=== PATIENT | female | born 1940 | race Caucasian/White ===

== ENCOUNTER → 2017-05-25 | Outpatient (REF) | payer MEDICARE, BC, OTHER ==
[2017-05-25 18:19] LABS: ALBUMIN 3.7 GM/DL (3.2-5.2); ALBUMIN/GLOBULIN RATIO 1.09 (1.00-1.93); ALKALINE PHOSPHATASE 110 U/L (45-117); ALT/SGPT 22 U/L (12-78); ANION GAP 10 MEQ/L (8-16); AST/SGOT 11 U/L (15-37); BILIRUBIN,TOTAL 0.4 MG/DL (0.2-1.0); BLOOD UREA NITROGEN 19 MG/DL (7-18); CALCIUM LEVEL 9.3 MG/DL (8.8-10.2); CARBON DIOXIDE LEVEL 26 MEQ/L (21-32); CHLORIDE LEVEL 105 MEQ/L (98-107); GLOMERULAR FILTRATION RATE > 60.0 (>39); GLUCOSE, FASTING 245 MG/DL (83-110); POTASSIUM SERUM 4.2 MEQ/L (3.5-5.1); SODIUM LEVEL 141 MEQ/L (136-145); TOTAL PROTEIN 7.1 GM/DL (6.4-8.2)
[2017-05-25 19:56] LABS: VITAMIN B12 LEVEL 335 PG/ML (247-911)
== END ==
LOC: M SFHCPLAZ 14:36
PROVIDERS: ATTEND Physician Assistant
DX: R20.2 Paresthesia of skin (principal); R26.81 Unsteadiness on feet; R29.6 Repeated falls; E11.9 Type 2 diabetes mellitus without complications; F32.9 Major depressive disorder, single episode, unspecified; I10 Essential (primary) hypertension; E03.9 Hypothyroidism, unspecified; Z79.84 Long term (current) use of oral hypoglycemic drugs; Z79.82 Long term (current) use of aspirin
CPT/HCPCS: 36415; 80053; 82306; 82607; 84443; G0463

== ENCOUNTER → 2017-06-29 | Outpatient (CLI) | payer MEDICARE, BC, OTHER ==
--- NOTE | 2017-06-29 17:32 | REP ---
MRI lumbar spine without contrast: History: Left-sided foot drop. Technique: Sagittal and axial T1 and T2-weighted scans are acquired in the usual fashion with and without fat saturation. Sequences include spin echo, turbo spin-echo, and STIR imaging sequences. MRI findings: Lumbar vertebral body heights are preserved. There is some straightening. No extra vertebral abnormality is noted. Conus medullaris is normal in position and appearance at T12-L1. There is diffuse degenerative narrowing and desiccation of the discs at each level from L2-3 through L5-S1 consistent with degenerative disc disease. There are multiple Schmorl's nodes on either side of the L4-5 disc. At L2-3, there is a broad-based disc protrusion along the left posterolateral and left foraminal disc margin producing neural foraminal encroachment and indenting the thecal sac. This combined with developmentally short pedicles, mild facet hypertrophy, and ligamentum flavum hypertrophy, produces moderate central canal stenosis at L2-3 as well. The right neural foramen is adequate. At L3-4, there is moderate central canal stenosis as well. This is due to diffuse disc bulging, short pedicles, ligamentum flavum and facet hypertrophy. There is also a 3 mm L3-4 degenerative spondylolisthesis. At L4-5, there is moderate central canal stenosis due to right posterior broad-based disc protrusion, short pedicles, ligamentum flavum and facet hypertrophy. There is mild bilateral neural foraminal encroachment at L4-5. At L5-S1, there is diffuse disc bulging. Bilateral neural foraminal encroachment is seen left greater than right due to disc spurring and bulging and facet hypertrophy. No central canal stenosis is noted at L5-S1. Impression: Fairly advanced degenerative spondylosis changes with multilevel central canal stenosis at L2-3 through L4-5. Multilevel neural foraminal encroachment is also noted. There is a degenerative 3 mm L3-4 spondylolisthesis. Signed by Polo Riggs MD 06/30/2017 07:57 A
== END ==
LOC: M RAD 13:21
PROVIDERS: ATTEND Family Medicine
DX: M21.372 Foot drop, left foot (principal); M51.26 Other intervertebral disc displacement, lumbar region; M51.27 Other intervertebral disc displacement, lumbosacral region; M47.816 Spondylosis without myelopathy or radiculopathy, lumbar region; M47.817 Spondylosis without myelopathy or radiculopathy, lumbosacral region

== ENCOUNTER → 2017-07-14 | Outpatient (CLI) | payer MEDICARE, BC, OTHER ==
--- NOTE | 2017-07-14 11:49 | REP ---
Soft-tissue ultrasound left lower extremity popliteal space. History: Left-sided foot drop. Question left Wiley's cyst. Findings: The posterior popliteal soft tissue area was scanned sonographically. No Wiley's cyst is appreciated. No mass or aneurysm is seen. No vascular abnormality is noted. Impression: Negative posterior popliteal soft tissue ultrasound. Signed by Polo Riggs MD 07/14/2017 01:43 P
== END ==
LOC: M RAD 10:36
PROVIDERS: ATTEND Psychiatry & Neurology Neurology
DX: M21.372 Foot drop, left foot (principal); M71.22 Synovial cyst of popliteal space [Baker], left knee

== ENCOUNTER → 2017-08-03 | Outpatient (REF) | payer MEDICARE, BC, OTHER ==
[2017-08-03 16:25] LABS: ANION GAP 10 MEQ/L (8-16); BLOOD UREA NITROGEN 13 MG/DL (7-18); CALCIUM LEVEL 8.7 MG/DL (8.8-10.2); CARBON DIOXIDE LEVEL 27 MEQ/L (21-32); CHLORIDE LEVEL 107 MEQ/L (98-107); CHOLESTEROL LEVEL 143 MG/DL (<200); CREATININE FOR GFR 0.58 MG/DL (0.55-1.02); GLOMERULAR FILTRATION RATE > 60.0 (>39); GLUCOSE, FASTING 208 MG/DL (83-110); POTASSIUM SERUM 4.2 MEQ/L (3.5-5.1); SODIUM LEVEL 144 MEQ/L (136-145); TRIGLYCERIDES LEVEL 140 MG/DL (<150)
== END ==
LOC: M SFHCPLAZ 14:04
PROVIDERS: ATTEND Family Medicine
DX: E11.65 Type 2 diabetes mellitus with hyperglycemia (principal); E78.5 Hyperlipidemia, unspecified
CPT/HCPCS: 36415; 80048; 80061; 83036; G0463

== ENCOUNTER → 2017-12-01 | Outpatient (CLI) | payer MEDICARE, BC, OTHER | LOC: M CLY 11:36 | DX: J22 Unspecified acute lower respiratory infection (principal) | CPT/HCPCS: 71046 ==

== ENCOUNTER → 2019-06-09 | Outpatient (REF) | payer MEDICARE, OTHER ==
[~2019-06-09] MED LIST: AMLO10TA PO; ASPI81CH44 PO; ATOR40TA75 PO; CVS5000S2 PO; FLUO10CA8 PO; GLIP2.5T6 PO; JANU50TA8 PO; LEVO88TA3 PO; LISI-538 PO; MECL1CHW PO; METO1TAB87 PO; NEUR100C PO; OMEP-218 PO; PLAV1TAB2 PO; VESI5TAB2 PO
[2019-06-09 14:00] LABS: BASO # 0.1 10^3/uL (0.0-0.2); BASO % 0.7 % (0.0-1.0); EOS # 0.3 10^3/uL (0.0-0.50); EOS % 2.7 % (0.0-3.0); HEMATOCRIT 37.7 % (36.0-47.0); HEMOGLOBIN 11.9 g/dl (12.0-15.5); LYMPH # 2.6 10^3/uL (1.5-4.5); LYMPH % 27.1 % (24.0-44.0); MEAN CORPUSCULAR HEMOGLOBIN 27.9 pg (27.0-33.0); MEAN CORPUSCULAR HGB CONC 31.6 g/dl (32.0-36.5); MEAN CORPUSCULAR VOLUME 88.5 fl (80.0-96.0); MONO # 0.9 10^3/uL (0.0-0.8); MONO % 9.1 % (0.0-5.0); NEUTROPHILS # 5.8 10^3/uL (1.8-7.7); PLATELET COUNT, AUTOMATED 369 10^3/uL (150-450); RED BLOOD COUNT 4.26 10^6/uL (4.00-5.40); WHITE BLOOD COUNT 9.7 10^3/uL (4.0-10.0)
[2019-06-09 14:14] LABS: ALBUMIN 3.3 GM/DL (3.2-5.2); ALT/SGPT 15 U/L (12-78); BILIRUBIN,TOTAL 0.3 MG/DL (0.2-1.0); BLOOD UREA NITROGEN 10 MG/DL (7-18); CALCIUM LEVEL 8.7 MG/DL (8.8-10.2); CARBON DIOXIDE LEVEL 26 MEQ/L (21-32); CHLORIDE LEVEL 109 MEQ/L (98-107); CK-MB VALUE MASS 1.9 NG/ML (<3.6); CPK CREATINE PHOSPHOKINASE 67 U/L (26-192); CREATININE FOR GFR 0.59 MG/DL (0.55-1.30); GLOMERULAR FILTRATION RATE > 60.0 (>39); GLUCOSE, FASTING 122 MG/DL (70-100); MB/CK RELATIVE INDEX 2.84 (< OR =4); POTASSIUM SERUM 4.5 MEQ/L (3.5-5.1); SODIUM LEVEL 143 MEQ/L (136-145); TOTAL PROTEIN 6.6 GM/DL (6.4-8.2); TROPONIN I 0.11 NG/ML (< 0.10)
== END ==
LOC: M SFHCPLAZ 11:01
PROVIDERS: ATTEND Physician Assistant Medical
DX: E11.9 Type 2 diabetes mellitus without complications (principal); I21.11 ST elevation (STEMI) myocardial infarction involving right coronary artery; E78.2 Mixed hyperlipidemia
CPT/HCPCS: 36415; 80053; 82550; 82553; 84484; 85025; G0463

== ENCOUNTER 2019-07-13 11:11 | Outpatient (RCR) | payer MEDICARE, BC, OTHER ==
--- NOTE | 2019-06-22 15:19 | CARECAPL ---
Assessment Account #s: Initial Assessment General Diagnoses: STEMI Date of event: May 30, 2019 Physician: Grupo Andrews Allergies: Coded Allergies: Vicodin (Verified Allergy, vomiting, 06/22/19) Morphine (Verified Adverse Reaction, vomiting, 06/22/19) Percocet (Verified Adverse Reaction, vomiting, 06/22/19) Date Entered Program: Jun 22, 2019 Risk strat for cardiac event: Moderate Exercise Date: Jun 22, 2019 Assessment: Initial Assessment Exercise Prescription Modalities initiated: Treadmill (will add), Cardio-Strider (will add), Nustep (will add), Arm Aerometer (will add), Dumbells (will add), Recumbent Bike (will add) Frequency: 2-3 Duration (Minutes) 30-60 minutes total exercise a day. 6-10 work intervals in minutes. prn rest intervals in minutes. Functional Capacity Goal Sustained Metabolic Equivalent of a task (MET) goal of 2.5-3.5 for 15-20 minutes. Intensity: 3-Moderate Progression (METS) Increase by: .5 METS every: 2-3 sessions Angina with ex: No Target Heart Rate rest + 35-40 Resistance Training: Yes Weight (pounds): 1 Reps: 6-8 Hypertension: Yes Hypertension controlled with: Diet Resting 148/67 Meds see below Medications Scheduled Amlodipine Besylate (Norvasc), 10 MG PO DAILY, (Reported) Aspirin (Aspirin), 1 TAB PO DAILY, (Reported) Atorvastatin Calcium (Atorvastatin Calcium), 1 TAB PO DAILY, (Reported) Clopidogrel Bisulfate (Plavix), 75 MG PO DAILY, (Reported) Cyanocobalamin (Vitamin B-12) (Vitamin B12), 5 MG PO DAILY, (Reported) Fluoxetine Hcl (Fluoxetine HCl), 10 MG PO DAILY, (Reported) Gabapentin (Neurontin), 200 MG PO DAILY, (Reported) Glipizide (Glipizide ER), 2.5 MG PO DAILY, (Reported) Levothyroxine Sodium (Levothyroxine Sodium), 88 MCG PO DAILY, (Reported) Lisinopril (Lisinopril), 1 TAB PO DAILY, (Reported) Meclizine Hcl (Meclizine HCl), 25 MG PO DAILY, (Reported) Metoprolol Tartrate (Metoprolol Tartrate), 25 MG PO DAILY, (Reported) Omeprazole (Omeprazole), 1 CAP PO DAILY, (Reported) Sitagliptin Phos/Metformin HCl (Janumet 50-1,000 mg Tablet), 2 TAB PO DAILY, (Reported) Solifenacin Succinate (Vesicare), 1 TAB PO DAILY, (Reported) Target Goals Individual exercise Rx (1) BP 140/90 or 130/80 if DM or CKD (1) Aerobic active 30+min 5 days per week (1) Nutrition Date: Jun 22, 2019 Assessment: Initial Assessment Lipid- med/supplement Atorvastatin Diabetes Diabetes: Yes Fasting Blood Sugar: 117 Diabetes medication glipizide Monitor Blood Sugar at home: Yes Frequency daily Weight Management Weight (lbs): 143 Height (inches): 61 Waist Circumference (Inches): 38 BMI: 27 Weight goal: 135 Special Diet: low salt, mediteranean diet, low-fat Vitamin/Supplements: Vitamin C, Vitamin D Intervention Dietary Goals smaller portions and better choices Diet Class: Yes (will see this program) Referral to Diabetes education: No Referral to lipid clinic: No Referral to weight mangement p: No Target goal LDL-C<100 if triglycerides are >200 Non-HDL-C should be <130 (1) LDL-C<70 for high risk patients (4) HbA1c<7% (1) BMI<25 Waist cir<40in M/<35in F (1) Education Date: Jun 22, 2019 Assessment: Initial Assessment Knowledge Test Score: 7 Family Support: Yes Tobacco use: No Quit: >6 months Intervention Education class schedule given: Yes Target Goals Complete cessation of tobacco use (1). Psychosocial Date: Jun 22, 2019 Assessment: Initial Assessment Psych Test (Initial/Discharge) Tool Used: Other (depression scale) Score: 9 Intervention Physician Consult: No Physician Referral: No Stress Management Class: Yes Uses Stress Management Skills: Yes Target Goal Assess presence or absence of depression using a valid screening tool (1). Maximize coping skills (2). Positive support system (2). Provider Assessment Session Number: 1 Provider Assessment: Proceed with Didi Neal RN Jun 22, 2019 15:18
--- NOTE | 2019-07-14 15:58 | CARECAPL ---
Assessment Account #s: Re-Assessment I General Diagnoses: STEMI Date of event: May 30, 2019 Physician: Grupo Andrews Allergies: Coded Allergies: acetaminophen (Verified Allergy, Unknown, vomiting, 06/22/19) hydrocodone (Verified Allergy, Unknown, vomiting, 06/22/19) morphine (Verified Adverse Reaction, Unknown, vomiting, 06/22/19) oxycodone (Verified Adverse Reaction, Unknown, vomiting, 06/22/19) Date Entered Program: Jun 22, 2019 Risk strat for cardiac event: Moderate Exercise Date: Jul 14, 2019 Assessment: Re-Assessment I Exercise Prescription Plan TO EDUCATE AND BUILD ENDURANCE THROUGH MONITORED EXERCISE Modalities initiated: Nustep (LEVEL 2/METS=1.9/RPE=3), Arm Aerometer (LEVEL 2.5/METS=1.8/RPE=2.5), Dumbells (3#/RPE=3) Frequency: 1-2 Duration (Minutes) 30 - 60 minutes total exercise a day. 15 - 20 work intervals in minutes. PRN rest intervals in minutes. Functional Capacity Goal Sustained Metabolic Equivalent of a task (MET) goal of 2.5-3.5 for 15-20 minutes. Intensity: 3-Moderate Progression (METS) Increase by: 0.5 METS every: 3-5 sessions TOLERATED Angina with ex: No Target Heart Rate REST +35-40 Resistance Training: Yes Weight (pounds): 3 Reps: 6-8 Hypertension: Yes Hypertension controlled with: Diet Resting 146/88 Peak Exercise BP 130/70 Medications Scheduled Amlodipine Besylate (Norvasc), 10 MG PO DAILY, (Reported) Aspirin (Aspirin), 1 TAB PO DAILY, (Reported) Atorvastatin Calcium (Atorvastatin Calcium), 1 TAB PO DAILY, (Reported) Clopidogrel Bisulfate (Plavix), 75 MG PO DAILY, (Reported) Cyanocobalamin (Vitamin B-12) (Vitamin B12), 5 MG PO DAILY, (Reported) Fluoxetine Hcl (Fluoxetine HCl), 10 MG PO DAILY, (Reported) Gabapentin (Neurontin), 200 MG PO DAILY, (Reported) Glipizide (Glipizide ER), 2.5 MG PO DAILY, (Reported) Levothyroxine Sodium (Levothyroxine Sodium), 88 MCG PO DAILY, (Reported) Lisinopril (Lisinopril), 1 TAB PO DAILY, (Reported) Meclizine Hcl (Meclizine HCl), 25 MG PO DAILY, (Reported) Metoprolol Tartrate (Metoprolol Tartrate), 25 MG PO DAILY, (Reported) Omeprazole (Omeprazole), 1 CAP PO DAILY, (Reported) Sitagliptin Phos/Metformin HCl (Janumet 50-1,000 mg Tablet), 2 TAB PO DAILY, (Reported) Solifenacin Succinate (Vesicare), 1 TAB PO DAILY, (Reported) Current BP 122/70 Med Change: No Intervention Resistance Training: Yes Education: Self pulse (LOCATION/TIME), Ex safety (KEEP HYDRATED), S/S to report (REPORT CHEST PAIN/SOB), Low NA diet (FOLLOWING SALT RESTRICTION, NO ADDING SALT TO FOOD), BP medication (REVIEWED IMPORTANCE OF COMPLIANCE WITH MEDICATIONS, DISCUSSED LISINOPRIL,METOPROLOL,NORVASC), RPE Scale (DEMONSTRATES ABILITY TO RATE DIFFICULTY), Equipment orientation (REVIEWED EQUIPMENT USED), warm up/cool down (DEMONSTRATES ABILITY TO WARM UP/COOL DOWN TO PREVENT INJURY), Und erstand BP (REVIEWED STANDARD B/P), Physical Active (REVIEWED IMPORTANCE OF CONTINUED EXERCISE FOLLOWING CARDIAC REHAB PROGRAM) Education Goals Met: No (POOR PROGRESS TOWARD GOALS) Target Goals Individual exercise Rx (1) BP 140/90 or 130/80 if DM or CKD (1) Aerobic active 30+min 5 days per week (1) Nutrition Date: Jul 14, 2019 Assessment: Re-Assessment I Lipid- med/supplement ATORVASTATIN Med Change: No Diabetes Diabetes: No Monitor Blood Sugar at home: No Medication Change: No Blood sugar in range: Yes Weight Management Weight (lbs): 143.4 Special Diet: low salt, mediteranean diet, low-fat Alcohol: none Current Weight (pounds): 143.4 Intervention Time Analysis Clerk Consult: No Nurse/patient discussion: Yes Dietary Goals HEART HEALTHY CHOICES Diet Class: Yes (WILL SEE FLOORMAN WHILE IN PROGRAM) Referral to Diabetes education: No Referral to lipid clinic: No Referral to weight mangement p: No Education Eating Healthy (DISCUSSED MEDITERRANEAN DIET EATING MORE FISH, VEGETABLES/NEEDS REINFORCEMENT) Education Goals Met: No (POOR PROGRESS TOWARD GOALS) Target goal LDL-C<100 if triglycerides are >200 Non-HDL-C should be <130 (1) LDL-C<70 for high risk patients (4) HbA1c<7% (1) BMI<25 Waist cir<40in M/<35in F (1) Education Date: Jul 14, 2019 Assessment: Re-Assessment I Learning Barriers: ready Family Support: Yes Tobacco use: No Quit: >6 months Tobacco Use Smokeless tobacco: No Intervention Referral to smoking cessation: No Individual education and couns: No Tobacco Adjunct: No Education class schedule given: No Attended education classes: No Education: tobacco triggers (STRESS/NEEDS REINFORCEMENT), CAD (REVIEWED CAD/NEEDS REINFORCEMENT), Risk factors (DIET,SMOKING,LACK OF EXERCISE/NEEDS REINFORCEMENT), med compliance (DISCUSSED IMPORTANCE OF TAKING MEDICATION ORDERED/NEEDS REINFORCEMENT), cardiac A&P (ANATOMY OF HEART HANDOUT/NEEDS REINFORCEMENT), Angina S/S (CHEST PAIN,NAUSEA,VOMITING,SOB/NEEDS REINFORCEMENT), Sexuality (UNDERSTANDS WHEN RELEASED FROM MD) Education Goals Met: Yes (NEEDS REINFORCEMENT) Target Goals Complete cessation of tobacco use (1). Psychosocial Date: Jul 14, 2019 Assessment: Re-Assessment I Intervention Physician Consult: No Physician Referral: No Med Change: No Stress Management Class: No Uses Stress Management Skills: Yes Education Education: Coping Techniques (TAKE TIME FOR SELF, READING,LISTENING TO MUSIC/NEEDS MORE REINFORCEMENT), S/S depression (LACK OF INTEREST,LOSS OF APPETITE/NEEDS REINFORCEMENT), Relaxation Techniques (LISTENING TO MUSIC,READING/NEEDS REINFORCEMENT) Education Goals Met: Yes (PROGRESSING SLOWLY/WILL REINFORCE EDUCATION/SET GOALS) Target Goal Assess presence or absence of depression using a valid screening tool (1). Maximize coping skills (2). Positive support system (2). Patient/Program Goal Preventative Medication: Yes Aspirin, Yes Clopidogrel, Yes Beta blockade, Yes Statin/OTR lipid Lowering Fall Risk Assess: Yes (NOT A FALL RISK) Provider Assessment Session Number: 5 Provider Assessment: No changes (POOR PROGRESS TOWARD GOALS DUE TO LACK OF INTEREST) Manfred Dawn RN Jul 14, 2019 15:58
== END 2019-07-15 ==
LOC: M CR 11:11
PROVIDERS: ATTEND Internal Medicine Cardiovascular Disease
DX: I21.3 ST elevation (STEMI) myocardial infarction of unspecified site (principal)

== ENCOUNTER 2019-07-22 08:30 | Day surgery (SDC) | payer MEDICARE, BC, OTHER ==
[2019-07-22] VITALS (9 sets, daily range): BP systolic 124–171; BP diastolic 58–80
[~2019-07-22] VITALS: Ht 154.9 cm; Wt 60.7 kg
[2019-07-22] MEDS ORDERED: VITAMIN D PO (08:49)
[2019-07-22] MEDS ORDERED: VITA500T40 PO (08:49)
[2019-07-22] MEDS ORDERED: JANU50TA25 PO (08:49)
[2019-07-22] MEDS ORDERED: MECL-86 PO (08:50)
--- NOTE | 2019-07-22 08:56 | REP ---
Clinical: Acute chest pain . Comparison: 12/01/2017 . Findings: The mediastinum and cardiac silhouette are stable and within normal limits for portable technique. The lung gao are clear without acute consolidation, effusion, or pneumothorax. Skeletal structures are intact. Impression: No acute cardiopulmonary process appreciated. Electronically Signed by Mikhail Beasley MD 07/22/2019 08:47 A
[2019-07-22] MEDS ORDERED: ONDANSETRON 4MG/2ML VIAL (J2405) IV ONE (09:00)
--- NOTE | 2019-07-22 09:14 | REP ---
Clinical: Trauma . Findings: Age-related atrophy and microvascular ischemic changes are appreciated. The ventricles and sulci are symmetric. Mathur-white differentiation is maintained. There is no evidence for acute intracranial hemorrhage, mass/mass effect, pathology or infarction. No extra-axial fluid collection. Calvarium is intact. Paranasal sinuses and mastoid air cells are clear. Impression: Age related atrophy and microvascular ischemic changes. No acute intracranial hemorrhage, infarction, or mass/mass effect. Electronically Signed by Mikhail Beasley MD 07/22/2019 09:06 A
[2019-07-22] MEDS ORDERED: ceFAZolin 2 GM/D5W 50 ML IV BAG (J0690 PER 500MG) As Ordered ONE (09:15)
--- NOTE | 2019-07-22 09:18 | REP ---
Clinical: Trauma. Technique: Axial noncontrast images from the skull base to the thoracic inlet with coronal and sagittal re-formations. Findings: Anterior fusion at C4-C6 is appreciated. Alignment is maintained. There is no evidence for acute fracture / compression injury or subluxation. Advanced multilevel degenerative disc osteophyte complexes noted from the atlantoaxial level through C7-T1. Findings include osteophytosis, chondrocalcinosis, endplate sclerosis, disc space narrowing and facet arthropathy. Chronic canal stenosis at C4-5 through C6-7 is appreciated. Surrounding soft tissues are grossly unremarkable. Lung apices are clear. Impression: 1. Prior anterior fusion and diffuse advanced degenerative spondylosis. 2. Alignment is maintained and there is no evidence for acute fracture / compression injury or subluxation. Electronically Signed by Mikhail Beasley MD 07/22/2019 09:10 A
[2019-07-22] MEDS ORDERED: VITA50005 PO (09:27)
[2019-07-22] MEDS ORDERED: NITR4TASL SL (09:27)
[2019-07-22] MEDS ORDERED: VICT18IN SC (09:27)
[2019-07-22] MEDS ORDERED: PROPOFOL 200 MG/20 ML VIAL As Ordered ONE (09:41)
[2019-07-22] MEDS ORDERED: MIDAZOLAM INJ 2 MG/2 ML VIAL (J2250) As Ordered ONE (09:41)
[2019-07-22] MEDS ORDERED: fentaNYL 100 MCG/2 ML INJECTION (J3010) As Ordered ONE (09:41)
[2019-07-22] MEDS ORDERED: NITROGLYCERIN 0.4 MG SUBL TABLET SL PRN (11:15)
[2019-07-22] MEDS ORDERED: DEXTROSE 50% 50 ML SYRINGE IV PRN (11:30)
[2019-07-22] MEDS ORDERED: LR 1,000 ML IV SCH (11:30)
[2019-07-22] MEDS ORDERED: ONDANSETRON 4MG/2ML VIAL (J2405) IV PRN (11:30)
[2019-07-22] MEDS ORDERED: fentaNYL 100 MCG/2 ML INJECTION (J3010) IV PRN (11:30)
[2019-07-22] MEDS ORDERED: GLUCOSE 4 GM CHEW TABLET PO PRN (11:30)
[2019-07-22] MEDS ORDERED: GLUCAGON FOR INJ 1 MG VIAL (J1610) SC PRN (11:30)
--- NOTE | 2019-07-22 12:26 | REP ---
Clinical: Status post pacemaker . Comparison: 07/22/2019 at 08:41 a.m. . Findings: Dual lead pacemaker in satisfactory position. The mediastinum and cardiac silhouette are stable and within normal limits for portable technique. The lung gao are clear without acute consolidation, effusion, or pneumothorax. Skeletal structures are intact. Impression: Dual lead pacemaker in satisfactory position. No pneumothorax. Electronically Signed by Mikhail Beasley MD 07/22/2019 12:18 P
[2019-07-22] MEDS: ACETAMINOPHEN TAB 650MG DOSE (2X325MG) PO PRN ×2 (13:14→18:28)
[2019-07-22] MEDS: HumaLOG INSULIN (NovoLOG) PER UNIT SC SCH ×2 (13:15→18:01)
--- NOTE | 2019-07-22 13:27 | RO ---
DATE OF PROCEDURE: 07/22/2019 PROCEDURE: Implantation of permanent dual chamber pacemaker. IMPLANTING VESSEL BUILDER: Dr. Jeff Martel. ANESTHESIOLOGIST: Dr. Raygoza. PREOPERATIVE DIAGNOSIS: Recurrent syncope/complete heart block. POSTOPERATIVE DIAGNOSIS: Recurrent syncope/complete heart block. TYPE OF ANESTHESIA: Monitored local anesthesia. CLINICAL SUMMARY: This 79-year-old woman resident of [place] who is known to my cardiology service with multiple coronary artery risk factors including prior smoking, hypertension, hyperlipidemia, and diabetes mellitus has been followed for hypertensive heart disease and only recently suffered a non-Q wave myocardial infarction May 2019. At that time, she underwent multivessel PTCA/stenting and appeared to have done well. 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 She was just seen by her primary provider June 09, 2019 and had been doing reasonably well. Has had a history of chronic vertigo and intermittent falls attributed to inner ear problems. The morning she was found to have collapsed and an ambulance was called. She was found to be markedly bradycardic and en route to the hospital a trial of atropine was administered without effect. In our emergency room, she was promptly evaluated by Dr. Whelan. Her EKG showed complete heart block with telemetry showing intermittently markedly slow ventricular responses. I was summoned to see her and found on the monitor she would have pauses of 10 seconds with rate observed down to 16 beats per minute. She was in the process of undergoing chest and abdominal CT scanning with right flank pain with her fall. We chose to defer this until her cardiovascular status was more stable and she was emergently taken to the operating room for pacemaker implantation. This pleasant elderly woman of medium body build appeared markedly pale and with intermittent confusion and dizziness even in the supine position. Heart rate in the 30s, blood pressure of 138/62 supine, respiratory was 16, O2 saturation was 98% with supplemental oxygen. Trachea midline. Neck veins did not appear to be elevated. Normal-appearing chest configuration and chest expansion. Good air entry over both lung gao with no adventitious sounds. Apical impulse not palpable. Heart sounds were quite irregular. No audible murmur. Peripheral pulses appeared to be symmetrical and normal. No dependent edema. Last available blood work from May showed a hemoglobin of 11.9. Normal white blood cell count and platelet count. Chemistry confirmed electrolyte balance with BUN 10, creatinine 0.56. DESCRIPTION OF PROCEDURE: With the patient in fasting state having signed informed consent she received Ancef 2 grams IV premedication and was taken to the operating theater. Cardioverting / defibrillating / noninvasive patches were in place and connected to a bedside cardioverter defibrillator. Multiple surface electrodes were applied to facilitate continuous electrocardiographic monitoring. The left subclavian region was prepped and draped in usual fashion and skin was infiltrated with 1% Xylocaine. The left axillary vein was catheterized using the micropuncture technique and a 5-cm linear incision was made several centimeters below and parallel to the left clavicle. Dissection was carried down to the level of the pectoralis fascia. The pocket was fashioned below the level incision line. Two commercial airplane pilot other screw-in active fixation steroid eluding pacing leads were then positioned to the distal right ventricular septum and the high right atrial appendage under fluoroscopic electrocardiographic control. The first ventricular lead ([employer] model number [id number], serial number [id number]) showed initial signals and pacing values at the RV apex seemed to be satisfactory but upon screwing the lead into the right ventricular apex, we found a lead impedance of 4000 ohms. The measured R-wave was 7.5 mV. In light of this marked increase in the lead impedance from baseline (1000 ohms prior to deploying the screw), we elected to replace this lead. The second right ventricular lead ([employer] model number [id number], serial number [id number]). Measurements were focal and stimulation threshold 0.75 V / 0.4 ms/ impedance 440 ohms. R wave amplitude measured 5-6 mV. The atrial lead ([employer] model number [id number] serial number [id number]) measurements were focal stimulation threshold 1.0, V / 0.4 ms/ lead impedance 660 ohms. The P wave amplitude measured 5.0 small mV. These leads were secured in position with sleeves sutured at the insertion site and a were connected to a dual-chamber pulse generator - MRI compatible ([employer] - [employer] model number [id number] serial number [id number]) and appropriate, DDD pacing was documented. The rate responsive feature of this device will not be activated. We positioned the pulse generator pocket and secured in position with a suture through the upper right-hand corner of the epoxy header. The subcutaneous tissues were approximated using a running chromic suture and skin was closed using rafael. Dry dressing was applied. The patient was returned to recovery room in good condition. No apparent complications other than the malfunctioning ventricular pacing lead we tried using initially. Estimated blood loss less than 10 mL. Postoperative portable upright chest x-ray showed good lead position with no pneumothorax. The EKG showed sinus tachycardia at 108 bpm with consistent atrial sensing and tracking with consistent ventricular pacing. Paced QRS complexes with leftward axis and left bundle branch block configuration in keeping with RV apical stimulation. The patient will be monitored on telemetry overnight and her usual medications will be restarted except for her diabetic therapy will be temporarily replaced by s.c. insulin according to standard sliding scale. We anticipate her tentative discharge tomorrow. ARACELI
[2019-07-22 15:14] LABS: BASO % 0.2 % (0.0-1.0); HEMATOCRIT 36.7 % (36.0-47.0); HEMOGLOBIN 11.9 g/dl (12.0-15.5); LYMPH # 1.4 10^3/uL (1.5-5.0); LYMPH % 7.5 % (24.0-44.0); MEAN CORPUSCULAR HEMOGLOBIN 28.1 pg (27.0-33.0); MEAN CORPUSCULAR HGB CONC 32.4 g/dl (32.0-36.5); MEAN CORPUSCULAR VOLUME 86.6 fl (80.0-96.0); MONO % 5.3 % (0.0-5.0); NEUTROPHILS # 16.4 10^3/uL (1.5-8.5); NEUTROPHILS % 86.5 % (36.0-66.0); PLATELET COUNT, AUTOMATED 292 10^3/uL (150-450); RED BLOOD COUNT 4.24 10^6/uL (4.00-5.40); WHITE BLOOD COUNT 18.9 10^3/uL (4.0-10.0)
[2019-07-22] MEDS ORDERED: LIDOCAINE 1% SDV INJ 30 ML VIAL As Ordered ONE (15:35)
[2019-07-22 15:36] LABS: INR 1.04; PROTHROMBIN TIME 13.3 SECONDS (11.8-14.0)
[2019-07-22 15:37] LABS: PARTIAL THROMBOPLASTIN TIME 24.6 SECONDS (25.0-38.4)
[2019-07-22 15:41] LABS: MAGNESIUM LEVEL 1.2 MG/DL (1.8-2.4); PHOSPHORUS LEVEL 3.4 MG/DL (2.5-4.9)
[2019-07-22 15:52] LABS: ALBUMIN 3.2 GM/DL (3.2-5.2); ALT/SGPT 17 U/L (12-78); BILIRUBIN,DIRECT < 0.1 MG/DL (0.0-0.2); BILIRUBIN,TOTAL 0.2 MG/DL (0.2-1.0); BLOOD UREA NITROGEN 31 MG/DL (7-18); CALCIUM LEVEL 8.3 MG/DL (8.8-10.2); CARBON DIOXIDE LEVEL 18 MEQ/L (21-32); CHLORIDE LEVEL 111 MEQ/L (98-107); CK-MB VALUE MASS 4.6 NG/ML (<3.6); CPK CREATINE PHOSPHOKINASE 113 U/L (26-192); CREATININE FOR GFR 1.28 MG/DL (0.55-1.30); FREE T4 1.49 NG/DL (0.76-1.46); GLOMERULAR FILTRATION RATE 42.9 (>39); GLUCOSE, FASTING 184 MG/DL (70-100); MB/CK RELATIVE INDEX 4.07 (< OR =4); POTASSIUM SERUM 4.4 MEQ/L (3.5-5.1); SODIUM LEVEL 143 MEQ/L (136-145); TOTAL PROTEIN 6.1 GM/DL (6.4-8.2); TROPONIN I 1.17 NG/ML (< 0.10)
[2019-07-22] MEDS: SOLIFENACIN 5 MG TAB PO SCH (17:12)
[2019-07-22] MEDS: ceFAZolin SOD 1 GM in D5W MINI-BAG PLUS 50 ML IV SCH (18:01)
--- NOTE | 2019-07-22 19:32 | ECGEPIP ---
[facility] - ED Test Date: 2019-07-22 Pat Name: CLARK BARRIENTOS Department: Room: - Gender: Female Distance Education Coordinator: : 1940 Requested By: ALKA Griffin Order Number: [id number] Reading MD: Alexandra Amaya Measurements Intervals [place] Rate: 31 P: CT: 0 QRS: -23 QRSD: 126 T: 132 QT: 543 QTc: 391 Interpretive Statements Complete AV block with wide QRS complex CLINICAL CORRELATION Electronically Signed on 07-22-2019 19:32:51 EDT by Alexandra Amaya
[2019-07-22] MEDS ORDERED: ATORVASTATIN 20 MG TAB PO SCH (21:00)
[2019-07-22] MEDS ORDERED: ASPIRIN 81 MG CHEW TABLET PO SCH (21:00)
[2019-07-22] MEDS ORDERED: HumaLOG INSULIN (NovoLOG) PER UNIT SC SCH (21:00)
[2019-07-22] MEDS: LISINOPRIL 10 MG TAB PO SCH (21:09)
[2019-07-22] MEDS: METOPROLOL TART 25 MG TABLET PO SCH (21:09)
--- NOTE | 2019-07-22 21:59 | ECGEPIP ---
[facility] Test Date: 2019-07-22 Pat Name: CLARK BARRIENTOS Department: Room: - Gender: Female Shield Cleaner: [facility] : 1940 Requested By: Jeff Martel Order Number: [id number] Reading MD: Jeff Martel Measurements Intervals [place] Rate: 108 P: 68 [place]: 179 QRS: -22 QRSD: 142 T: 139 QT: 380 QTc: 510 Interpretive Statements Sinus tachycardia Atrial sensing and tracking with consistent ventricular pacing Paced QRS complexes having leftward axis and Left bundle branch block configuration in keeping with RV apical stimulation Pacing is new from earlier the same day Electronically Signed on 07-22-2019 21:59:18 EDT by Jeff Martel
[2019-07-23] MEDS: ACETAMINOPHEN TAB 650MG DOSE (2X325MG) PO PRN ×2 (00:13→09:38)
[2019-07-23] MEDS: ceFAZolin SOD 1 GM in D5W MINI-BAG PLUS 50 ML IV SCH ×2 (00:16→08:59)
[2019-07-23 04:00] VITALS: BP 159/73
[2019-07-23] MEDS ORDERED: LEVOTHYROXINE 88MCG TABLET (0.088 MG) PO SCH (06:00)
[2019-07-23 08:00] VITALS: BP 140/68
[2019-07-23] MEDS: HumaLOG INSULIN (NovoLOG) PER UNIT SC SCH ×2 (09:00→13:39)
[2019-07-23] MEDS ORDERED: OMEPRAZOLE 20 MG CAP PO SCH (09:00)
[2019-07-23] MEDS ORDERED: VITAMIN D 50,000 UNITS CAPSULE (ERGOCALCIFEROL 1.25MG) PO SCH (09:00)
[2019-07-23] MEDS ORDERED: CLOPIDOGREL 75 MG TAB PO SCH (09:00)
--- NOTE | 2019-07-23 09:01 | REP ---
Clinical: Status post pacemaker. Technique: PA and lateral. Comparison: 07/22/2019. Findings: Dual lead pacemaker in satisfactory stable position. Mediastinum and cardiac silhouette normal. No consolidation, effusion, or pneumothorax. Skeletal structures intact. Impression: Status post pacemaker. No pneumothorax. Electronically Signed by Mikhail Beasley MD 07/23/2019 08:53 A
[2019-07-23] MEDS: METOPROLOL TART 25 MG TABLET PO SCH (09:02)
[2019-07-23 09:03] VITALS: BP 140/68
[2019-07-23] MEDS: LISINOPRIL 10 MG TAB PO SCH (09:03)
--- NOTE | 2019-07-23 09:36 | ECGEPIP ---
[facility] Test Date: 2019-07-23 Pat Name: CLARK BARRIENTOS Department: Room: B4295-71 Gender: Female Suggestion Clerk: ROLA : 1940 Requested By: Jeff Martel Order Number: [id number] Reading MD: Jeff Martel Measurements Intervals [place] Rate: 81 P: 40 [place]: 199 QRS: -34 QRSD: 139 T: 29 QT: 391 QTc: 457 Interpretive Statements Normal sinus rhythm Atrial sensing and tracking with consistent ventricular pacing Slower rate but otherwise unchanged from 07/22/19 Electronically Signed on 07-23-2019 9:36:21 EDT by Jeff Martel
[2019-07-23 12:00] VITALS: BP 122/68
[2019-07-23] MEDS ORDERED: FLUoxetine 10 MG CAP PO SCH (12:00)
[2019-07-23] MEDS: SOLIFENACIN 5 MG TAB PO SCH (12:41)
[2019-07-23 13:42] LABS: BASO # 0.1 10^3/uL (0.0-0.2); BASO % 0.5 % (0.0-1.0); EOS # 0.2 10^3/uL (0.0-0.5); EOS % 1.7 % (0.0-3.0); HEMATOCRIT 36.7 % (36.0-47.0); HEMOGLOBIN 11.8 g/dl (12.0-15.5); LYMPH # 3.8 10^3/uL (1.5-5.0); LYMPH % 28.7 % (24.0-44.0); MEAN CORPUSCULAR HEMOGLOBIN 28.1 pg (27.0-33.0); MEAN CORPUSCULAR HGB CONC 32.2 g/dl (32.0-36.5); MEAN CORPUSCULAR VOLUME 87.4 fl (80.0-96.0); MONO # 1.2 10^3/uL (0.0-0.8); MONO % 9.2 % (0.0-5.0); NEUTROPHILS # 7.9 10^3/uL (1.5-8.5); NEUTROPHILS % 59.7 % (36.0-66.0); PLATELET COUNT, AUTOMATED 267 10^3/uL (150-450); WHITE BLOOD COUNT 13.2 10^3/uL (4.0-10.0)
[2019-07-23 14:09] LABS: BLOOD UREA NITROGEN 20 MG/DL (7-18); CALCIUM LEVEL 8.6 MG/DL (8.8-10.2); CARBON DIOXIDE LEVEL 27 MEQ/L (21-32); CHLORIDE LEVEL 109 MEQ/L (98-107); CREATININE FOR GFR 0.67 MG/DL (0.55-1.30); GLOMERULAR FILTRATION RATE > 60.0 (>39); GLUCOSE, FASTING 157 MG/DL (70-100); PHOSPHORUS LEVEL 2.9 MG/DL (2.5-4.9); POTASSIUM SERUM 4.1 MEQ/L (3.5-5.1); SODIUM LEVEL 141 MEQ/L (136-145); TROPONIN I 0.85 NG/ML (< 0.10)
--- NOTE | 2019-07-23 14:31 | IPN ---
DATE: 07/23/2019 CARDIOLOGY PROGRESS NOTE SUBJECTIVE The patient has had only minimal incisional tenderness. No swelling, abnormal erythema or discharge. She has been ambulating with her walker in the [place]car[place] without any further dizziness. Denies any anginal chest discomfort or shortness of breath. OBJECTIVE: Pleasant, elderly lady of medium body build. No longer appears pale as she had in the emergency room. She is laying comfortably flat on the stretcher. Heart rate 85 beats per minute and regular. Blood pressure 148/68 supine, respiratory rate 16 per minute, oxygen saturation 95% on room air. Afebrile. Normal oral moisture. No central cyanosis. Trachea midline. Neck veins were not elevated. Normal chest configuration. Her incision appears to be healing well. Her dressing was changed. No dependent edema. court monitor: This is showing consistent atrial sensing and tracking with consistent ventricular pacing. EKG: Tracing taken earlier today was reviewed independently and shows sinus rhythm at 81 beats per minute. Left atrial conduction disturbance. Consistent atrial sensing and tracking with consistent ventricular pacing. Paced QRS complexes having a leftward axis and LVEDP configuration that is unchanged from immediately post pacer implant. Heart rate, however, has considerably slowed. Chest x-ray: PA and left lateral study showed normal heart size and greater vessels. Normal pulmonary vasculature. Stable pacing lead position with pulse generator left subclavian region. Lung gao were clear with no effusion or infiltrate to suggest pulmonary contusion with her fall yesterday. No evidence of rib fracture. LABORATORY DATA: Blood work yesterday postoperatively showed a hemoglobin of 11.9 with leukocytosis of 18.9 thousand related to her trauma and markedly slow heart rate. Platelet count was normal. Normal PT / INR and PTT. Electrolytes showed a slight metabolic acidosis but otherwise normal. BUN was 31, creatinine 1.28. These values were up from June 09 and again a reflection of hypotension and hypoperfusion with her complete heart block. Random glucose was 184. Liver function studies were normal. Her Troponin I level was in an indeterminate range of 1.17, but as mentioned, she has been free of anginal discomfort that she had been experiencing before. Her ultrasensitive TSH was normal. CPK was normal. IMPRESSION/PLAN: 1. Recurrent syncope / falls: On close questioning of the patient, she has actually had intermittent falls dating back for at least a year that were attributed to a vestibular problem and she was prescribed meclizine. In retrospect, it may be that she has been having paroxysmal complete heart block / Spicer-Gatica attacks dating back that far. At this point, she feels great and has been ambulating without dizziness or faintness. 2. Complete heart block: Believed to be related to a degenerative conduction tissue problem. Markedly slow ventricular response and pauses resulted in her collapse yesterday sustaining blunt trauma to her right flank, a degree of acute renal injury and indeterminate troponin I level. Her pacemaker incision appears to be healing well. Her chest x-ray confirms stable lead position with no pneumothorax. There is also no evidence of rib fracture or pulmonary contusion or pleural effusion. She was able to ambulate with less discomfort today. Complete pacemaker interrogation was performed showing excellent intracardiac electrograms and pacing thresholds. We were able to activate her atrial and ventricular auto capture functions yesterday. Today, she actually had a recordable ventricular complex with R-wave measuring 4.7 mV. Her pacemaker, ventricular sensitivity was left at 1.5. Estimated battery longevity was 10 years. 3. Coronary artery disease (chitina vessel) / recent non-Q-wave myocardial infarction / status post multivessel coronary stenting: Since her stenting procedure, has been free of any anginal chest discomfort. Current EKGs show stable repolarization abnormalities related to her right ventricular pacing. I suspect her Troponin I rise may have been related to her blunt chest trauma and profound hypotension with her complete heart block. She has been ambulating as mentioned without anginal discomfort. A followup Troponin I level is pending but we anticipate if this shows a downward trend she will be able to safely be discharged home on her protective combination medical therapy. 4. Hypertensive heart disease (benign without heart failure): Prior to pacemaker implant, had been having ease of fatigue and effort dyspnea. At this point, she feels wonderful ambulating the alcaraz with no symptoms or signs of congestion. Her current blood pressure would be considered adequately controlled. Followup chemistry is pending. PA and lateral chest x-ray shows no vascular congestion or pleural effusion. At this point, I am cautiously optimistic her blood work, which is pending, will show a significant improvement from yesterday and if so we will allow her to be discharged home. She plans on staying with her family for the next 2 weeks. I have encouraged him to continue to perform her regular activities except for light activities with her left arm until her rafael are removed. We have also requested that she avoid getting her incision wet until the rafael are removed. She has been encouraged to contact us promptly for any abnormal swelling, erythema or discharge. Her diet will continue to be modest salt intake restriction with 1600 calories diabetic. Her medications will continue the same including: - Lisinopril 20 mg p.o. daily - amlodipine 10 mg p.o. daily - aspirin 81 mg daily - Plavix 75 mg daily - atorvastatin 40 mg daily - metoprolol 25 mg by mouth twice a day - Nitrostat 0.4 mg sublingual every 5 minutes as needed for chest pain - omeprazole 20 mg daily - levofloxacin 88 mcg daily - glipizide 2.5 mg tablets extended release 1 tablet daily - Victoza two pack, 1.8 mg subcutaneous daily - Janumet XR 50-1 gram two tablets at night - Vesicare 5 mg p.o. daily - Fluoxetine 10 mg by mouth daily - vitamin D2 50,000 units by mouth weekly - vitamin B12 500 mcg p.o. daily - meclizine 25 mg by mouth twice a day as needed for vertigo The patient's family has my personal cell phone number, and I have requested that they contact me should they have any questions or concerns. Jeff Martel MD [facility]
== END 2019-07-23 15:27 | disposition home or self-care (01) ==
LOC: EDBD 08:30 → M ED 08:30 → M SDC 08:31 → M PCU 12:00 → M SDC 07-23 15:27
PROVIDERS: ATTEND Internal Medicine Cardiovascular Disease
DX: I44.2 Atrioventricular block, complete (principal); R55 Syncope and collapse; I10 Essential (primary) hypertension; E11.9 Type 2 diabetes mellitus without complications; E78.5 Hyperlipidemia, unspecified; E03.9 Hypothyroidism, unspecified; I25.10 Atherosclerotic heart disease of native coronary artery without angina pectoris; K21.9 Gastro-esophageal reflux disease without esophagitis; F41.9 Anxiety disorder, unspecified; F32.9 Major depressive disorder, single episode, unspecified; Z79.899 Other long term (current) drug therapy; Z79.82 Long term (current) use of aspirin; Z87.891 Personal history of nicotine dependence; Z86.73 Personal history of transient ischemic attack (TIA), and cerebral infarction without residual deficits; Z90.710 Acquired absence of both cervix and uterus; Z96.1 Presence of intraocular lens
CPT/HCPCS: 33208; 36415; 70450; 71045; 71046; 72125; 80048; 80076; 82550; 82553; 83735; 84100; 84439; 84443; 84484; 85025; 85610; 85730; 93005; 93041; 94760; 96360; 96361; 96372; 99285; C1785; C1898; J0690; J2250; J3010

== ENCOUNTER 2019-08-10 10:31 | Outpatient (RCR) | payer MEDICARE, BC, OTHER ==
--- NOTE | 2019-08-07 09:55 | CARECAPL ---
Assessment Account #s: Re-Assessment II General Diagnoses: STEMI Date of event: May 30, 2019 Physician: Grupo Andrews Allergies: Coded Allergies: hydrocodone (Verified Adverse Reaction, Mild, vomiting, 07/22/19) morphine (Verified Adverse Reaction, Mild, vomiting, 07/22/19) oxycodone (Verified Adverse Reaction, Mild, vomiting, 07/22/19) Date Entered Program: Jun 22, 2019 Risk strat for cardiac event: Moderate Exercise Date: Aug 07, 2019 Assessment: Re-Assessment II Stages of change: Pre-contemplation Exercise Prescription Modalities initiated: Nustep (L2 mts 2.0 rpe 3 20 minutes), Arm Aerometer ( 3.5 mts 2.88 rpe 3.5 10 minutes), Dumbells Duration (Minutes) 30 - 60 minutes total exercise a day. 15 - 20 work intervals in minutes. PRN rest intervals in minutes. Functional Capacity Goal Sustained Metabolic Equivalent of a task (MET) goal of 3.0-3.5 for 15-20 minutes. Intensity: 2-Slight Progression (METS) Increase by: METS every: sessions Angina with ex: No Resistance Training: Yes Weight (pounds): 3 Reps: 6-8 Hypertension: Yes Hypertension controlled with: Medication Resting 124/60 Peak Exercise BP 136/84 Meds see below Medications Scheduled Amlodipine Besylate (Norvasc), 10 MG PO DAILY, (Reported) Aspirin (Aspirin), 81 MG PO QPM, (Reported) Atorvastatin Calcium (Atorvastatin Calcium), 40 MG PO QHS, (Reported) Clopidogrel Bisulfate (Plavix), 75 MG PO DAILY, (Reported) Cyanocobalamin (Vitamin B-12) (Vitamin B-12), 500 MCG PO DAILY, (Reported) Ergocalciferol (Vitamin D2) (Vitamin D2), 50,000 UNIT PO QWEEK, (Reported) Fluoxetine Hcl (Fluoxetine HCl), 10 MG PO DAILY, (Reported) Glipizide (Glipizide ER), 2.5 MG PO DAILY, (Reported) Levothyroxine Sodium (Levothyroxine Sodium), 88 MCG PO DAILY, (Reported) Liraglutide (Victoza 2-Jacob), 1.8 MG SC DAILY, (Reported) Lisinopril (Lisinopril), 20 MG PO QHS, (Reported) Metoprolol Tartrate (Metoprolol Tartrate), 25 MG PO BID, (Reported) Omeprazole (Omeprazole), 20 MG PO DAILY, (Reported) Sitagliptin Phos/Metformin HCl (Janumet Xr 50-1,000 mg Tablet), 2 TAB PO QPM, (Reported) Solifenacin Succinate (Vesicare), 5 MG PO DAILY, (Reported) Scheduled PRN Meclizine HCl (Meclizine HCl), 12.5 MG PO BID PRN for DIZZINESS, (Reported) Nitroglycerin (Nitrostat), 0.4 MG SL NITRO PRN for CHEST PAIN, (Reported) Current BP 112/58 after exercise Med Change: No Intervention Home exercise: Type (walking, hand weights, stationary bike. 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 Psychosocial Date: Aug 07, 2019 Assessment: Re-Assessment II Stages of change: Pre-contemplation Stress Management Class: Yes (very low motivation) Education Goals Met: No (does not engage herself in exercise, appears to not enjoy being here. Not very receptive or interested in education provided.) Target Goal Assess presence or absence of depression using a valid screening tool (1). Maximize coping skills (2). Positive support system (2). Provider Assessment Session Number: 6 Provider Assessment: No changes (poor attendance from being. Is currently recovering from pacemaker insertion) Didi Keita RN Aug 07, 2019 09:55
[~2019-08-10 10:31] MED LIST changes: +JANU50TA25 PO; +MECL-86 PO; +NITR4TASL SL; +VICT18IN SC; +VITA50005 PO; +VITA500T40 PO; +VITAMIN D PO
== END 2019-08-14 ==
LOC: M CR 10:31
PROVIDERS: ATTEND Internal Medicine Cardiovascular Disease
DX: I21.3 ST elevation (STEMI) myocardial infarction of unspecified site (principal)

== ENCOUNTER 2019-09-08 14:32 | Outpatient (RCR) | payer MEDICARE, BC, OTHER ==
--- NOTE | 2019-09-06 12:57 | CARECAPL ---
Assessment Account #s: Re-Assessment II (REASSESSMENT III) General Diagnoses: STEMI Date of event: May 30, 2019 Physician: Grupo Andrews Allergies: Coded Allergies: hydrocodone (Verified Adverse Reaction, Mild, vomiting, 07/22/19) morphine (Verified Adverse Reaction, Mild, vomiting, 07/22/19) oxycodone (Verified Adverse Reaction, Mild, vomiting, 07/22/19) Date Entered Program: Jun 22, 2019 Risk strat for cardiac event: High Exercise Date: Sep 06, 2019 Assessment: Re-Assessment II (REASSESSMENT III) Stages of change: Contemplate Exercise Prescription Modalities initiated: Nustep (METS=2.5/RPE=2.5), Arm Aerometer (METS=1.8/RPE=3), Dumbells (3#/RPE=3) Frequency: 3 Duration (Minutes) 30 - 60 minutes total exercise a day. 15 - 20 work intervals in minutes. PRN rest intervals in minutes. Functional Capacity Goal Sustained Metabolic Equivalent of a task (MET) goal of 3.0-3.5 for 15-20 minutes. Intensity: 3-Moderate Progression (METS) Increase by: METS every: sessions Angina with ex: No Target Heart Rate REST +35-40 Resistance Training: Yes Weight (pounds): 3 Reps: 8-12 Hypertension: Yes Hypertension controlled with: Medication (NORVASC,LISINOPRIL,METOPROLOL) Resting 124/72 Peak Exercise BP 124/70 Medications Scheduled Amlodipine Besylate (Norvasc), 10 MG PO DAILY, (Reported) Aspirin (Aspirin), 81 MG PO QPM, (Reported) Atorvastatin Calcium (Atorvastatin Calcium), 40 MG PO QHS, (Reported) Clopidogrel Bisulfate (Plavix), 75 MG PO DAILY, (Reported) Cyanocobalamin (Vitamin B-12) (Vitamin B-12), 500 MCG PO DAILY, (Reported) Ergocalciferol (Vitamin D2) (Vitamin D2), 50,000 UNIT PO QWEEK, (Reported) Fluoxetine Hcl (Fluoxetine HCl), 10 MG PO DAILY, (Reported) Glipizide (Glipizide ER), 2.5 MG PO DAILY, (Reported) Levothyroxine Sodium (Levothyroxine Sodium), 88 MCG PO DAILY, (Reported) Liraglutide (Victoza 2-Jacob), 1.8 MG SC DAILY, (Reported) Lisinopril (Lisinopril), 20 MG PO QHS, (Reported) Metoprolol Tartrate (Metoprolol Tartrate), 25 MG PO BID, (Reported) Omeprazole (Omeprazole), 20 MG PO DAILY, (Reported) Sitagliptin Phos/Metformin HCl (Janumet Xr 50-1,000 mg Tablet), 2 TAB PO QPM, (Reported) Solifenacin Succinate (Vesicare), 5 MG PO DAILY, (Reported) Scheduled PRN Meclizine HCl (Meclizine HCl), 12.5 MG PO BID PRN for DIZZINESS, (Reported) Nitroglycerin (Nitrostat), 0.4 MG SL NITRO PRN for CHEST PAIN, (Reported) Current BP 118/60 Intervention Home exercise: Type (WALKING,HAND WEIGHTS,STATIONARY BIKE, JOIN LOCAL GYM), Frequency (5 TIMES PER WEEK), Duration (30-60 MINUTES) Resistance Training: Yes Education: Self pulse (SEE PRIOR ITP FOR EDUCATION COMPLETED) Education Goals Met: No (PROGRESSING SLOWLY TOWARD GOALS/LACK OF MOTIVATION) Target Goals Individual exercise Rx (1) BP 140/90 or 130/80 if DM or CKD (1) Aerobic active 30+min 5 days per week (1) Nutrition Date: Sep 06, 2019 Assessment: Re-Assessment II (REASSESSMENT III) Stages of change: Contemplate Lipid- med/supplement ATORVASTATIN 40 MG DAILY Med Change: No Diabetes Diabetes: Yes Diabetes medication JANUMET, GLIPIZIDE Medication Change: No Weight Management Weight (lbs): 142 Height (inches): 62 Special Diet: low salt, low-fat Current Weight (pounds): 142 Intervention Male Model Consult: No Nurse/patient discussion: Yes Dietary Goals TO MAKE HEART HEALTHY DIET CHOICES, MAINTAIN LOW SALT DIET Diet Class: Yes (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) Referral to Diabetes education: No Referral to lipid clinic: No Referral to weight mangement p: No Education Eating Healthy Education Goals Met: No (PROGRESSING SLOWLY TOWARD GOALS, PATIENT SEEMS NOT TO BE MOTIVATED) Target goal LDL-C<100 if triglycerides are >200 Non-HDL-C should be <130 (1) LDL-C<70 for high risk patients (4) HbA1c<7% (1) BMI<25 Waist cir<40in M/<35in F (1) Education Date: Sep 06, 2019 Assessment: Re-Assessment II (REASSESSMENT III) Stages of change: Contemplate Family Support: Yes Tobacco use: No Tobacco Use Smokeless tobacco: No Intervention Referral to smoking cessation: No Individual education and couns: No Tobacco Adjunct: No Education class schedule given: No Attended education classes: No Education Goals Met: No (PROGRESSING SLOWLY/POOR ATTENDENCE/NOT VERY INTERESTED IN EDUCATION) Target Goals Complete cessation of tobacco use (1). Psychosocial Date: Sep 06, 2019 Assessment: Re-Assessment II (REASSESSMENT III) Stages of change: Contemplate Intervention Physician Consult: No Physician Referral: No Med Change: No Stress Management Class: No Uses Stress Management Skills: Yes Education Goals Met: No (PROGRESSING SLOWLY/POOR ATTENDENCE/MOTIVATION) Target Goal Assess presence or absence of depression using a valid screening tool (1). Maximize coping skills (2). Positive support system (2). Patient/Program Goal Preventative Medication: Yes Aspirin, Yes Clopidogrel, Yes Beta blockade, Yes Statin/OTR lipid Lowering Provider Assessment Session Number: 13 Provider Assessment: No changes (POOR ATTENDENCE FROM BEGINNING, WILL BE FINISHING PROGRAM NEXT WEEK) Manfred Dawn RN Sep 06, 2019 12:57
== END 2019-09-14 ==
LOC: M CR 14:32
PROVIDERS: ATTEND Internal Medicine Cardiovascular Disease
DX: I21.3 ST elevation (STEMI) myocardial infarction of unspecified site (principal)

== ENCOUNTER → 2020-08-29 | Outpatient (REF) | payer MEDICARE, OTHER ==
[~2020-08-29] MED LIST changes: +ASPI1CHW3 PO; -ASPI81CH44 PO; +FLUO10CA16 PO; -FLUO10CA8 PO
== END ==
LOC: M SFHCCLAY 10:45
PROVIDERS: ATTEND Physician Assistant
DX: R30.0 Dysuria (principal)
CPT/HCPCS: 81002; 87088; 87186; G0463

== ENCOUNTER → 2020-09-06 | Outpatient (REF) | payer MEDICARE, OTHER | LOC: M SFHCPLAZ 17:05 | PROVIDERS: ATTEND Physician Assistant | DX: N39.0 Urinary tract infection, site not specified (principal) | CPT/HCPCS: 81002; 87086; G0463 ==

== ENCOUNTER → 2020-09-07 | Outpatient (CLI) | payer MEDICARE, BC, OTHER ==
[2020-09-07 16:18] LABS: ALBUMIN 3.1 GM/DL (3.2-5.2); ALT/SGPT 17 U/L (12-78); BILIRUBIN,TOTAL 0.3 MG/DL (0.2-1.0); BLOOD UREA NITROGEN 14 MG/DL (7-18); CALCIUM LEVEL 8.9 MG/DL (8.8-10.2); CARBON DIOXIDE LEVEL 23 MEQ/L (21-32); CHLORIDE LEVEL 108 MEQ/L (98-107); CHOLESTEROL LEVEL 138 MG/DL (<200); CHOLESTEROL RISK RATIO 3.365 (<5); CREATININE FOR GFR 0.74 MG/DL (0.55-1.30); FREE T4 1.29 NG/DL (0.76-1.46); GLOMERULAR FILTRATION RATE > 60.0 (>39); GLUCOSE, FASTING 301 MG/DL (70-100); HDL CHOLESTEROL 41 MG/DL (>40); LDL CHOLESTEROL 58 MG/DL (<100); NON-HDL-C 97 MG/DL; POTASSIUM SERUM 4.1 MEQ/L (3.5-5.1); SODIUM LEVEL 139 MEQ/L (136-145); TOTAL PROTEIN 6.3 GM/DL (6.4-8.2); TRIGLYCERIDES LEVEL 197 MG/DL (<150)
[2020-09-07 16:21] LABS: HEMOGLOBIN A1c 8.5 %
[2020-09-07 16:43] LABS: MAU/CREAT RATIO 60.5 MCG/MG (0.0-30.0)
[2020-09-09 13:17] LABS: FOLATE 12.3 NG/ML (>5.4); TOTAL 25(OH) VITAMIN D 85.4 NG/ML (30.0-100.0); VITAMIN B12 LEVEL 627 PG/ML (247-911)
== END ==
LOC: M LAB 14:16
PROVIDERS: ATTEND Physician Assistant
DX: E11.9 Type 2 diabetes mellitus without complications (principal); Z79.899 Other long term (current) drug therapy

== ENCOUNTER → 2020-12-05 | Outpatient (REF) | payer MEDICARE, OTHER ==
[~2020-12-05] MED LIST changes: -LISI-538 PO; +LISI20TA33 PO
[2020-12-06 15:31] LABS: HEMOGLOBIN A1c 8.5 %
== END ==
LOC: M SFHCCLAY 15:11
PROVIDERS: ATTEND Family Medicine
DX: E11.9 Type 2 diabetes mellitus without complications (principal)
CPT/HCPCS: 83036; G0463

== ENCOUNTER → 2021-04-22 | Outpatient (CLI) | payer MEDICARE, OTHER ==
[2021-04-22 14:10] LABS: BASO # 0.1 10^3/uL (0.0-0.2); BASO % 0.6 % (0.0-1.0); EOS # 0.1 10^3/uL (0.0-0.5); HEMATOCRIT 39.7 % (36.0-47.0); HEMOGLOBIN 12.3 g/dl (12.0-15.5); LYMPH # 2.5 10^3/uL (1.5-5.0); LYMPH % 22.3 % (24.0-44.0); MEAN CORPUSCULAR HEMOGLOBIN 27.6 pg (27.0-33.0); MEAN CORPUSCULAR VOLUME 89.2 fl (80.0-96.0); MONO # 0.9 10^3/uL (0.0-0.8); MONO % 7.6 % (2.0-8.0); NEUTROPHILS # 7.6 10^3/uL (1.5-8.5); PLATELET COUNT, AUTOMATED 302 10^3/uL (150-450); RED BLOOD COUNT 4.45 10^6/uL (4.00-5.40); WHITE BLOOD COUNT 11.2 10^3/uL (4.0-10.0)
[2021-04-22 15:13] LABS: ALBUMIN 3.3 GM/DL (3.2-5.2); ALT/SGPT 19 U/L (12-78); BILIRUBIN,TOTAL 0.2 MG/DL (0.2-1.0); BLOOD UREA NITROGEN 10 MG/DL (7-18); CALCIUM LEVEL 9.2 MG/DL (8.8-10.2); CARBON DIOXIDE LEVEL 27 MEQ/L (21-32); CHLORIDE LEVEL 103 MEQ/L (98-107); CREATININE FOR GFR 0.64 MG/DL (0.55-1.30); FOLATE 9.5 NG/ML; FREE T4 1.39 NG/DL (0.76-1.46); GLOMERULAR FILTRATION RATE > 60.0 (>32); GLUCOSE, FASTING 318 MG/DL (70-100); POTASSIUM SERUM 4.1 MEQ/L (3.5-5.1); SODIUM LEVEL 139 MEQ/L (136-145); TOTAL PROTEIN 6.4 GM/DL (6.4-8.2); VITAMIN B12 LEVEL 1091 PG/ML
== END ==
LOC: M PLALAB 11:00
PROVIDERS: ATTEND Psychiatry & Neurology Neurology
DX: E53.8 Deficiency of other specified B group vitamins (principal); F03.90 Unspecified dementia, unspecified severity, without behavioral disturbance, psychotic disturbance, mood disturbance, and anxiety; E07.9 Disorder of thyroid, unspecified

== ENCOUNTER → 2021-05-10 | Outpatient (CLI) | payer MEDICARE, BC, OTHER | LOC: M RAD 10:17 | PROVIDERS: ATTEND Family Medicine | DX: Z53.29 Procedure and treatment not carried out because of patient's decision for other reasons (principal) ==

== ENCOUNTER → 2021-07-04 | Outpatient (REF) | payer MEDICARE, OTHER ==
[2021-07-04 12:50] LABS: HEMOGLOBIN A1c 7.2 %
[2021-07-04 13:04] LABS: BLOOD UREA NITROGEN 22 MG/DL (7-18); CALCIUM LEVEL 9.3 MG/DL (8.8-10.2); CARBON DIOXIDE LEVEL 22 MEQ/L (21-32); CHLORIDE LEVEL 112 MEQ/L (98-107); CREATININE FOR GFR 0.72 MG/DL (0.55-1.30); GLOMERULAR FILTRATION RATE > 60.0 (>32); GLUCOSE, FASTING 148 MG/DL (70-100); POTASSIUM SERUM 4.6 MEQ/L (3.5-5.1); SODIUM LEVEL 141 MEQ/L (136-145)
== END ==
LOC: M SFHCCLAY 08:44
PROVIDERS: ATTEND Family Medicine
DX: E11.65 Type 2 diabetes mellitus with hyperglycemia (principal)

== ENCOUNTER 2022-03-22 10:00 | Inpatient (IN) | payer MEDICARE, BC, OTHER ==
[~2022-03-22] VITALS: Ht 165.1 cm; Wt 58.1 kg
[~2022-03-22 10:00] MED LIST changes: -FLUO10CA16 PO; +FLUO10CA18 PO; +OMEP-173 PO; -OMEP-218 PO
[2022-03-22] MEDS ORDERED: NS 500 ML IV ONE (10:15)
[2022-03-22] MEDS ORDERED: ONDANSETRON 4MG/2ML VIAL IV ONE (10:15)
[2022-03-22 10:55] LABS: BASO % 0.2 % (0.0-1.0); HEMATOCRIT 37.5 % (36.0-47.0); HEMOGLOBIN 12.3 g/dl (12.0-15.5); LYMPH # 1.4 10^3/uL (1.5-5.0); LYMPH % 6.6 % (24.0-44.0); MEAN CORPUSCULAR HEMOGLOBIN 28.6 pg (27.0-33.0); MEAN CORPUSCULAR HGB CONC 32.8 g/dl (32.0-36.5); MEAN CORPUSCULAR VOLUME 87.2 fl (80.0-96.0); MONO # 1.2 10^3/uL (0.0-0.8); MONO % 5.7 % (2.0-8.0); NEUTROPHILS # 18.1 10^3/uL (1.5-8.5); PLATELET COUNT, AUTOMATED 287 10^3/uL (150-450); WHITE BLOOD COUNT 20.8 10^3/uL (4.0-10.0)
[2022-03-22 11:21] LABS: ALT/SGPT 14 U/L (12-78); AMYLASE 13 U/L (25-115); BILIRUBIN,DIRECT < 0.1 MG/DL (0.0-0.2); BILIRUBIN,TOTAL 0.4 MG/DL (0.2-1.0); LIPASE 87 U/L (73-393); TOTAL PROTEIN 6.5 GM/DL (6.4-8.2)
[2022-03-22 11:41] LABS: RSV AMPLIFICATION NEGATIVE (NEGATIVE)
[2022-03-22] MEDS ORDERED: ISOVUE-370 76% 100ML VIAL As Ordered ONE (11:44)
[2022-03-22] MEDS ORDERED: LIDOCAINE 2% 5ML JELLY UROJET TOP ONE (12:00)
[2022-03-22] MEDS ORDERED: metroNIDAZOLE 500 MG in IV 1 EA IV ONE (12:20)
[2022-03-22] MEDS ORDERED: NS 1,000 ML IV ONE (12:20)
[2022-03-22] MEDS ORDERED: CIPROFLOXACIN 400 MG in IV 1 EA IV ONE (12:20)
[2022-03-22] MEDS ORDERED: MEMA10TA19 PO (12:44)
[2022-03-22] MEDS ORDERED: GABA-1171 PO (12:44)
[2022-03-22] MEDS ORDERED: QUET50TA4 PO (12:44)
[2022-03-22] MEDS ORDERED: FLUO40CA PO (12:44)
[2022-03-22 14:10] LABS: BASO % 0.2 % (0.0-1.0); EOS % 0.2 % (0.0-3.0); HEMATOCRIT 36.1 % (36.0-47.0); HEMOGLOBIN 11.9 g/dl (12.0-15.5); LYMPH # 2.4 10^3/uL (1.5-5.0); LYMPH % 13.3 % (24.0-44.0); MEAN CORPUSCULAR HEMOGLOBIN 28.6 pg (27.0-33.0); MEAN CORPUSCULAR VOLUME 86.8 fl (80.0-96.0); MONO # 1.2 10^3/uL (0.0-0.8); MONO % 6.7 % (2.0-8.0); NEUTROPHILS # 14.5 10^3/uL (1.5-8.5); NEUTROPHILS % 79.3 % (36.0-66.0); PLATELET COUNT, AUTOMATED 279 10^3/uL (150-450); RED BLOOD COUNT 4.16 10^6/uL (4.00-5.40); WHITE BLOOD COUNT 18.3 10^3/uL (4.0-10.0)
[2022-03-22] MEDS ORDERED: VITA100093 PO (14:22)
[2022-03-22] MEDS ORDERED: HOME MED LIST COMPLETE! XX SCH (14:25)
[2022-03-22 14:40] LABS: BLOOD UREA NITROGEN 11 MG/DL (7-18); CALCIUM LEVEL 8.5 MG/DL (8.8-10.2); CARBON DIOXIDE LEVEL 25 MEQ/L (21-32); CHLORIDE LEVEL 107 MEQ/L (98-107); CREATININE FOR GFR 0.48 MG/DL (0.55-1.30); GLOMERULAR FILTRATION RATE > 60.0 (>32); GLUCOSE, FASTING 185 MG/DL (70-100); POTASSIUM SERUM 3.9 MEQ/L (3.5-5.1); SODIUM LEVEL 140 MEQ/L (136-145)
[2022-03-22 15:45] VITALS: BP 129/60
[2022-03-22] MEDS: PIPERACILLIN/TAZOBACTAM SOD 3.375 GM in D5W MINI-BAG PLUS 50 ML IV SCH ×2 (16:16→21:39)
[2022-03-22] MEDS: LR 1,000 ML IV SCH ×2 (16:16→21:10)
[2022-03-22] MEDS ORDERED: QUEtiapine FUMARATE 50MG TAB PO PRN (16:45)
[2022-03-22] MEDS ORDERED: MECLIZINE 25 MG TABLET PO PRN (16:45)
[2022-03-22] MEDS: OMEPRAZOLE 20MG CAP PO SCH (17:52)
[2022-03-22] MEDS: VITAMIN D 1,000 INTERNATIONAL UNITS TABLET PO SCH (17:52)
[2022-03-22] MEDS: CYANOCOBALAMIN 500 MCG TAB PO SCH (17:53)
[2022-03-22] MEDS: ONDANSETRON 4MG ORAL DISINTEGRATING TAB PO PRN (17:53)
[2022-03-22] MEDS: SITagliptin 50 MG TAB (JANUVIA) PO SCH (17:53)
[2022-03-22] MEDS: CLOPIDOGREL 75 MG TAB PO SCH (17:53)
[2022-03-22] MEDS: metFORMIN (GLUCOPHAGE) 1000MG TABLET PO SCH (17:53)
[2022-03-22] MEDS: FLUoxetine 20MG CAP PO SCH (17:53)
[2022-03-22] MEDS: SOLIFENACIN 5 MG TAB PO SCH (17:54)
[2022-03-22] MEDS: ASPIRIN 81 MG CHEW TABLET PO SCH (20:05)
[2022-03-22] MEDS: METOPROLOL TART 25 MG TABLET PO SCH (20:06)
[2022-03-22] MEDS: GABAPENTIN 100 MG CAP PO SCH (20:06)
[2022-03-22] MEDS: MEMANTINE 5MG TABLET (NAMENDA) PO SCH (20:07)
[2022-03-22] MEDS ORDERED: ATORVASTATIN 20 MG TAB PO SCH (21:00)
[2022-03-22 21:58] VITALS: BP 141/60
[2022-03-23] MEDS: LR 1,000 ML IV SCH ×2 (00:09→09:21)
[2022-03-23] MEDS: PIPERACILLIN/TAZOBACTAM SOD 3.375 GM in D5W MINI-BAG PLUS 50 ML IV SCH ×4 (03:15→21:52)
[2022-03-23 05:59] LABS: HEMATOCRIT 30.4 % (36.0-47.0); HEMOGLOBIN 9.8 g/dl (12.0-15.5); MEAN CORPUSCULAR HEMOGLOBIN 28.7 pg (27.0-33.0); MEAN CORPUSCULAR HGB CONC 32.2 g/dl (32.0-36.5); MEAN CORPUSCULAR VOLUME 88.9 fl (80.0-96.0); PLATELET COUNT, AUTOMATED 222 10^3/uL (150-450); RED BLOOD COUNT 3.42 10^6/uL (4.00-5.40); WHITE BLOOD COUNT 10.3 10^3/uL (4.0-10.0)
[2022-03-23 06:00] VITALS: BP 136/64
[2022-03-23] MEDS: LEVOTHYROXINE 88MCG TABLET (0.088 MG) PO SCH (06:01)
[2022-03-23 06:26] LABS: BLOOD UREA NITROGEN 9 MG/DL (7-18); CALCIUM LEVEL 8.6 MG/DL (8.8-10.2); CARBON DIOXIDE LEVEL 26 MEQ/L (21-32); CHLORIDE LEVEL 109 MEQ/L (98-107); CREATININE FOR GFR 0.74 MG/DL (0.55-1.30); GLOMERULAR FILTRATION RATE > 60.0 (>32); GLUCOSE, FASTING 163 MG/DL (70-100); POTASSIUM SERUM 3.5 MEQ/L (3.5-5.1); SODIUM LEVEL 143 MEQ/L (136-145)
[2022-03-23] MEDS: glipiZIDE *2.5MG* 1/2 TABLET PO SCH (09:21)
[2022-03-23] MEDS: SITagliptin 50 MG TAB (JANUVIA) PO SCH (09:21)
[2022-03-23] MEDS: GABAPENTIN 100 MG CAP PO SCH ×2 (09:21→21:52)
[2022-03-23] MEDS: CLOPIDOGREL 75 MG TAB PO SCH (09:22)
[2022-03-23] MEDS: METOPROLOL TART 25 MG TABLET PO SCH ×2 (09:22→21:55)
[2022-03-23] MEDS: CYANOCOBALAMIN 500 MCG TAB PO SCH (09:22)
[2022-03-23] MEDS: OMEPRAZOLE 20MG CAP PO SCH (09:22)
[2022-03-23] MEDS: MEMANTINE 5MG TABLET (NAMENDA) PO SCH ×2 (09:23→21:52)
[2022-03-23] MEDS: VITAMIN D 1,000 INTERNATIONAL UNITS TABLET PO SCH (09:23)
[2022-03-23] MEDS: FLUoxetine 20MG CAP PO SCH (09:24)
[2022-03-23] MEDS: SOLIFENACIN 5 MG TAB PO SCH (12:26)
[2022-03-23 14:00] VITALS: BP 129/66
[2022-03-23] MEDS: metFORMIN (GLUCOPHAGE) 1000MG TABLET PO SCH (17:20)
[2022-03-23 19:31] VITALS: BP 148/72
[2022-03-23] MEDS: ASPIRIN 81 MG CHEW TABLET PO SCH (21:52)
[2022-03-24] MEDS: PIPERACILLIN/TAZOBACTAM SOD 3.375 GM in D5W MINI-BAG PLUS 50 ML IV SCH ×2 (04:22→09:41)
[2022-03-24] MEDS ORDERED: CIPROFLOXACIN 500MG TABLET PO SCH (06:00)
[2022-03-24] MEDS: LEVOTHYROXINE 88MCG TABLET (0.088 MG) PO SCH (06:06)
[2022-03-24 06:16] VITALS: BP 145/65
[2022-03-24 06:16] LABS: HEMATOCRIT 33.8 % (36.0-47.0); HEMOGLOBIN 10.7 g/dl (12.0-15.5); MEAN CORPUSCULAR HEMOGLOBIN 28.5 pg (27.0-33.0); MEAN CORPUSCULAR HGB CONC 31.7 g/dl (32.0-36.5); MEAN CORPUSCULAR VOLUME 89.9 fl (80.0-96.0); PLATELET COUNT, AUTOMATED 248 10^3/uL (150-450); RED BLOOD COUNT 3.76 10^6/uL (4.00-5.40); WHITE BLOOD COUNT 11.9 10^3/uL (4.0-10.0)
[2022-03-24 06:47] LABS: BLOOD UREA NITROGEN 6 MG/DL (7-18); CALCIUM LEVEL 8.7 MG/DL (8.8-10.2); CARBON DIOXIDE LEVEL 28 MEQ/L (21-32); CHLORIDE LEVEL 109 MEQ/L (98-107); CREATININE FOR GFR 0.64 MG/DL (0.55-1.30); GLOMERULAR FILTRATION RATE > 60.0 (>32); GLUCOSE, FASTING 170 MG/DL (70-100); POTASSIUM SERUM 3.6 MEQ/L (3.5-5.1); SODIUM LEVEL 143 MEQ/L (136-145)
[2022-03-24] MEDS: ONDANSETRON 4MG ORAL DISINTEGRATING TAB PO PRN (06:48)
[2022-03-24] MEDS: MEMANTINE 5MG TABLET (NAMENDA) PO SCH (08:09)
[2022-03-24] MEDS: SITagliptin 50 MG TAB (JANUVIA) PO SCH (08:09)
[2022-03-24] MEDS: CLOPIDOGREL 75 MG TAB PO SCH (08:09)
[2022-03-24] MEDS: OMEPRAZOLE 20MG CAP PO SCH (08:09)
[2022-03-24 08:10] VITALS: BP 145/65
[2022-03-24] MEDS: VITAMIN D 1,000 INTERNATIONAL UNITS TABLET PO SCH (08:10)
[2022-03-24] MEDS: GABAPENTIN 100 MG CAP PO SCH (08:10)
[2022-03-24] MEDS: CYANOCOBALAMIN 500 MCG TAB PO SCH (08:10)
[2022-03-24] MEDS: glipiZIDE *2.5MG* 1/2 TABLET PO SCH (08:10)
[2022-03-24] MEDS: FLUoxetine 20MG CAP PO SCH (08:10)
[2022-03-24] MEDS: METOPROLOL TART 25 MG TABLET PO SCH (08:10)
[2022-03-24 09:00] VITALS: BP 145/65
[2022-03-24] MEDS: SOLIFENACIN 5 MG TAB PO SCH (11:12)
[2022-03-24] MEDS ORDERED: ONDA4TAB6 PO (12:48)
[2022-03-24] MEDS ORDERED: METR-265 PO (12:48)
[2022-03-24] MEDS ORDERED: CIPR-249 PO (12:48)
[2022-03-24] MEDS ORDERED: PROB250C PO (12:48)
[2022-03-24 14:00] VITALS: BP 133/86
[2022-03-24] MEDS ORDERED: metroNIDAZOLE (FLAGYL) 500MG TABLET PO SCH (14:00)
== END 2022-03-24 15:05 | disposition home or self-care (01) | DRG 392 ==
LOC: M ED 10:00 → M ED INP 13:09 → ENRESERV 15:03 → M MS5PR 15:35
PROVIDERS: ADMIT Family Medicine; ATTEND Internal Medicine
DX: K57.32 Diverticulitis of large intestine without perforation or abscess without bleeding (principal); Z95.0 Presence of cardiac pacemaker; E11.9 Type 2 diabetes mellitus without complications; I10 Essential (primary) hypertension; E03.9 Hypothyroidism, unspecified; H81.10 Benign paroxysmal vertigo, unspecified ear; F03.90 Unspecified dementia, unspecified severity, without behavioral disturbance, psychotic disturbance, mood disturbance, and anxiety; Z20.822 Contact with and (suspected) exposure to COVID-19; Z88.5 Allergy status to narcotic agent; Z79.82 Long term (current) use of aspirin; Z79.84 Long term (current) use of oral hypoglycemic drugs; Z79.899 Other long term (current) drug therapy; K21.9 Gastro-esophageal reflux disease without esophagitis; F32.A Depression, unspecified; M81.0 Age-related osteoporosis without current pathological fracture; M54.9 Dorsalgia, unspecified; I25.2 Old myocardial infarction; Z95.5 Presence of coronary angioplasty implant and graft; M43.22 Fusion of spine, cervical region; Z90.79 Acquired absence of other genital organ(s); Z87.891 Personal history of nicotine dependence; I25.10 Atherosclerotic heart disease of native coronary artery without angina pectoris

== ENCOUNTER → 2022-08-14 | Outpatient (REF) | payer MEDICARE, OTHER ==
[~2022-08-14] MED LIST changes: +CIPR-249 PO; +CLOP75TA99 PO; +ELIQ5TAB PO; +FLUO40CA PO; +GABA-1171 PO; +LOSA25TA13 PO; +MEMA10TA19 PO; +METR-265 PO; +MUCI600T31 PO; +ONDA4TAB6 PO; -PLAV1TAB2 PO; +PROB250C PO; +QUET50TA4 PO; +SOLI10TA PO; +VITA100093 PO
[2022-08-14 17:24] LABS: HEMATOCRIT 46.2 % (36.0-47.0); HEMOGLOBIN 14.4 g/dl (12.0-15.5); MEAN CORPUSCULAR HEMOGLOBIN 28.7 pg (27.0-33.0); MEAN CORPUSCULAR HGB CONC 31.2 g/dl (32.0-36.5); MEAN CORPUSCULAR VOLUME 92.2 fl (80.0-96.0); PLATELET COUNT, AUTOMATED 370 10^3/uL (150-450); RED BLOOD COUNT 5.01 10^6/uL (4.00-5.40); WHITE BLOOD COUNT 16.7 10^3/uL (4.0-10.0)
[2022-08-14 18:21] LABS: HEMOGLOBIN A1c 6.4 %
[2022-08-14 18:33] LABS: BLOOD UREA NITROGEN 18 MG/DL (7-18); CALCIUM LEVEL 9.3 MG/DL (8.8-10.2); CARBON DIOXIDE LEVEL 24 MEQ/L (21-32); CHLORIDE LEVEL 104 MEQ/L (98-107); CHOLESTEROL LEVEL 248 MG/DL (<200); CHOLESTEROL RISK RATIO 6.702 (<5); CREATININE FOR GFR 0.77 MG/DL (0.55-1.30); FREE T4 1.47 NG/DL (0.76-1.46); GLOMERULAR FILTRATION RATE > 60.0 (>32); GLUCOSE, FASTING 220 MG/DL (70-100); HDL CHOLESTEROL 37 MG/DL (>40); LDL CHOLESTEROL 162 MG/DL (<100); NON-HDL-C 211 MG/DL; SODIUM LEVEL 136 MEQ/L (136-145); TRIGLYCERIDES LEVEL 246 MG/DL (<150)
== END ==
LOC: M SFHCCLAY 11:32
PROVIDERS: ATTEND Nurse Practitioner Family
DX: E03.9 Hypothyroidism, unspecified (principal); E11.9 Type 2 diabetes mellitus without complications; F32.9 Major depressive disorder, single episode, unspecified; I11.0 Hypertensive heart disease with heart failure

== ENCOUNTER 2022-08-22 11:49 | Observation (INO) | payer MEDICARE, BC, OTHER ==
[~2022-08-22] VITALS: Ht 157.5 cm; Wt 50.5 kg
[~2022-08-22 11:49] MED LIST changes: -CLOP75TA99 PO; -ELIQ5TAB PO; -LOSA25TA13 PO; -MUCI600T31 PO; +PLAV1TAB2 PO; -SOLI10TA PO
[2022-08-22 12:47] LABS: VENOUS BASE EXCESS 0.3 (-2.0-2.0); VENOUS HCO3 23.9 MEQ/L (23.0-27.0); VENOUS O2 SATURATION 88.6 % (60.0-80.0); VENOUS PARTIAL PRESSURE CO2 35.4 mmHg (38.0-50.0); VENOUS PARTIAL PRESSURE O2 51.5 mmHg (30.0-50.0); VENOUS PH 7.447 UNITS (7.330-7.430); VENOUS STANDARD HCO3 24.6 MEQ/L
[2022-08-22 12:57] LABS: HEMATOCRIT 40.1 % (36.0-47.0); HEMOGLOBIN 13.1 g/dl (12.0-15.5); MEAN CORPUSCULAR HGB CONC 32.7 g/dl (32.0-36.5); MEAN CORPUSCULAR VOLUME 88.9 fl (80.0-96.0); PLATELET COUNT, AUTOMATED 280 10^3/uL (150-450); RED BLOOD COUNT 4.51 10^6/uL (4.00-5.40); WHITE BLOOD COUNT 11.7 10^3/uL (4.0-10.0)
[2022-08-22 13:28] LABS: CK-MB VALUE MASS < 1.0 NG/ML (<3.6); CPK CREATINE PHOSPHOKINASE 248 U/L (26-192)
[2022-08-22 13:35] LABS: ALBUMIN 2.8 GM/DL (3.2-5.2); ALT/SGPT 20 U/L (12-78); BILIRUBIN,DIRECT < 0.1 MG/DL (0.0-0.2); BILIRUBIN,TOTAL 0.3 MG/DL (0.2-1.0); BLOOD UREA NITROGEN 8 MG/DL (7-18); CARBON DIOXIDE LEVEL 25 MEQ/L (21-32); CHLORIDE LEVEL 105 MEQ/L (98-107); CREATININE FOR GFR 0.41 MG/DL (0.55-1.30); GLOMERULAR FILTRATION RATE > 60.0 (>32); GLUCOSE, FASTING 123 MG/DL (70-100); NT-PRO BNP 352 PG/ML (<450); SODIUM LEVEL 137 MEQ/L (136-145); THYROXINE (T4) 11.4 UG/DL (4.5-12.0); TOTAL PROTEIN 6.4 GM/DL (6.4-8.2)
[2022-08-22 13:50] LABS: ATYPICAL LYMPH 2 % (0-5); EOSINOPHILS 3 % (0-3); LYMPHOCYTES 8 % (16-44); MONOCYTES 9 % (0-5); NEUTROPHILS 77 % (28-66)
[2022-08-22 13:52] LABS: PLATELET CLUMPS SMALL AMT; PLATELET ESTIMATE NORMAL (NORMAL); SMUDGE CELLS 1+
[2022-08-22] MEDS ORDERED: ISOVUE-370 76% 100ML VIAL As Ordered ONE (14:05)
[2022-08-22 15:00] LABS: CK-MB VALUE MASS < 1.0 NG/ML (<3.6); CPK CREATINE PHOSPHOKINASE 286 U/L (26-192); MB/CK RELATIVE INDEX 0.35 (< OR =4)
[2022-08-22] MEDS ORDERED: LOSA25TA13 PO (15:59)
[2022-08-22 16:00] LABS: INR 0.91; PROTHROMBIN TIME 12.7 SECONDS (12.7-14.5)
[2022-08-22 16:01] LABS: PARTIAL THROMBOPLASTIN TIME 23.8 SECONDS (25.9-37.0)
[2022-08-22] MEDS ORDERED: SOLI10TA PO (16:01)
[2022-08-22] MEDS ORDERED: HOME MED LIST COMPLETE! XX SCH (16:05)
[2022-08-22] MEDS ORDERED: QUEtiapine FUMARATE 50MG TAB PO PRN (17:20)
[2022-08-22] MEDS ORDERED: NITROGLYCERIN 0.4 MG SUBL TABLET SL PRN (17:20)
[2022-08-22] MEDS ORDERED: DEXTROSE 50% 50 ML SYRINGE IV PRN (17:25)
[2022-08-22] MEDS ORDERED: GLUCOSE 4GM CHEW TABLET PO PRN (17:25)
[2022-08-22] MEDS ORDERED: GLUCAGON INJ 1MG VIAL SC PRN (17:25)
[2022-08-22] MEDS: INSULIN LISPRO (NovoLOG) PER UNIT SC SCH (19:08)
[2022-08-22] MEDS: SOLIFENACIN 5 MG TAB PO SCH (19:19)
[2022-08-22] MEDS ORDERED: LOSARTAN 25 MG TAB PO SCH (21:00)
[2022-08-22] MEDS ORDERED: GABAPENTIN 100 MG CAP PO SCH (21:00)
[2022-08-22] MEDS ORDERED: ASPIRIN 81 MG CHEW TABLET PO SCH (21:00)
[2022-08-22] MEDS: APIXABAN 5 MG TAB (ELIQUIS) PO SCH (22:21)
[2022-08-22 22:22] VITALS: BP 145/78
[2022-08-22] MEDS: METOPROLOL TART 25 MG TABLET PO SCH (22:22)
[2022-08-22] MEDS: guaiFENesin ER 600 MG TAB PO SCH (22:22)
[2022-08-23] VITALS: BP 156/61
[2022-08-23 00:08] VITALS: BP 156/61
[2022-08-23] MEDS: MEMANTINE 5MG TABLET (NAMENDA) PO SCH ×2 (01:21→08:52)
[2022-08-23 04:15] VITALS: BP 159/72
[2022-08-23] MEDS ORDERED: LEVOTHYROXINE 88MCG TABLET (0.088 MG) PO SCH (06:00)
[2022-08-23 06:20] LABS: HEMATOCRIT 38.8 % (36.0-47.0); HEMOGLOBIN 12.4 g/dl (12.0-15.5); MEAN CORPUSCULAR VOLUME 90.7 fl (80.0-96.0); PLATELET COUNT, AUTOMATED 260 10^3/uL (150-450); RED BLOOD COUNT 4.28 10^6/uL (4.00-5.40); WHITE BLOOD COUNT 9.2 10^3/uL (4.0-10.0)
[2022-08-23 06:53] LABS: BLOOD UREA NITROGEN 9 MG/DL (7-18); CALCIUM LEVEL 8.8 MG/DL (8.8-10.2); CARBON DIOXIDE LEVEL 28 MEQ/L (21-32); CHLORIDE LEVEL 106 MEQ/L (98-107); CREATININE FOR GFR 0.34 MG/DL (0.55-1.30); GLOMERULAR FILTRATION RATE > 60.0 (>32); GLUCOSE, FASTING 124 MG/DL (70-100); POTASSIUM SERUM 3.5 MEQ/L (3.5-5.1); SODIUM LEVEL 138 MEQ/L (136-145)
[2022-08-23 07:44] VITALS: BP 138/63
[2022-08-23 08:00] VITALS: BP 138/63
[2022-08-23] MEDS: INSULIN LISPRO (NovoLOG) PER UNIT SC SCH ×2 (08:52→11:57)
[2022-08-23] MEDS: APIXABAN 5 MG TAB (ELIQUIS) PO SCH (08:52)
[2022-08-23] MEDS: guaiFENesin ER 600 MG TAB PO SCH (08:53)
[2022-08-23] MEDS: METOPROLOL TART 25 MG TABLET PO SCH (08:54)
[2022-08-23] MEDS ORDERED: VITAMIN D 1,000 INTERNATIONAL UNITS TABLET PO SCH (09:00)
[2022-08-23] MEDS ORDERED: FLUoxetine 20MG CAP PO SCH (09:00)
[2022-08-23] MEDS ORDERED: OMEPRAZOLE 20MG CAP PO SCH (09:00)
[2022-08-23] MEDS ORDERED: CYANOCOBALAMIN 500 MCG TAB PO SCH (09:00)
[2022-08-23] MEDS ORDERED: ELIQ5TAB PO (10:52)
[2022-08-23] MEDS ORDERED: MUCI600T31 PO (10:52)
[2022-08-23] MEDS: SOLIFENACIN 5 MG TAB PO SCH (11:57)
[2022-08-23 12:05] VITALS: BP 128/62
== END 2022-08-23 13:54 | disposition home or self-care (01) ==
LOC: M ED 11:49 → EDBD 11:49 → M ED INP 11:50 → ENRESERV 22:10 → M PCU 08-23 00:05
PROVIDERS: ADMIT Internal Medicine; ATTEND Internal Medicine
DX: I26.99 Other pulmonary embolism without acute cor pulmonale (principal); B34.1 Enterovirus infection, unspecified; B34.8 Other viral infections of unspecified site; I25.10 Atherosclerotic heart disease of native coronary artery without angina pectoris; Z95.5 Presence of coronary angioplasty implant and graft; I25.2 Old myocardial infarction; I10 Essential (primary) hypertension; E11.9 Type 2 diabetes mellitus without complications; E03.9 Hypothyroidism, unspecified; F02.80 Dementia in other diseases classified elsewhere, unspecified severity, without behavioral disturbance, psychotic disturbance, mood disturbance, and anxiety; N32.81 Overactive bladder; K21.9 Gastro-esophageal reflux disease without esophagitis; F32.A Depression, unspecified; M19.90 Unspecified osteoarthritis, unspecified site; Z87.19 Personal history of other diseases of the digestive system; M54.9 Dorsalgia, unspecified; G89.29 Other chronic pain; Z95.0 Presence of cardiac pacemaker; I27.20 Pulmonary hypertension, unspecified; I08.1 Rheumatic disorders of both mitral and tricuspid valves; R53.1 Weakness; Z91.81 History of falling; Z79.899 Other long term (current) drug therapy; Z79.82 Long term (current) use of aspirin; Z79.890 Hormone replacement therapy; Z79.84 Long term (current) use of oral hypoglycemic drugs; Z88.5 Allergy status to narcotic agent; Z87.891 Personal history of nicotine dependence
CPT/HCPCS: 36415; 71045; 71275; 73060; 73502; 73552; 80048; 80076; 82550; 82553; 82803; 83605; 83880; 84436; 84443; 84484; 85025; 85027; 85610; 85730; 87040; 87486; 87581; 87633; 87798; 93005; 93041; 93306; 93970; 94760; 97162; 97530; 99285; G0378; J1815; Q9967

== ENCOUNTER → 2022-09-01 | Outpatient (CLI) | payer MEDICARE, BC, OTHER ==
[~2022-09-01] MED LIST changes: +ELIQ5TAB PO; +LOSA25TA13 PO; +MUCI600T31 PO; +SOLI10TA PO
== END ==
LOC: M CLY 14:07
PROVIDERS: ATTEND Nurse Practitioner Family
DX: B34.8 Other viral infections of unspecified site (principal)